=== PATIENT | male | born 2000 | race Caucasian/White ===

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

== ENCOUNTER 2022-03-01 10:16 | Emergency (ER) | payer BC, SELFPAY ==
--- NOTE | 2022-03-01 10:21 | XR_ITS ---
FINAL REPORT CLINICAL HISTORY: punched a refrigerator FINDINGS: 3 views of the right hand were obtained. There are transverse fractures of the 4th and 5th metacarpals. There is volar angulation of the distal fracture fragments. There is no intra-articular extension. The joint spaces are intact. There is prominent soft tissue swelling over the dorsum of the hand up to 1.3 cm. IMPRESSION: Fractures of the 4th and 5th metacarpals. Reviewed, Interpreted and Dictated by Tadeo Gomez MD Transcribed by Donnell Rivas Authenticated by Tadeo Gomez MD on 03/01/2022 11:05:08 AM [facility]
--- NOTE | 2022-03-01 10:22 | XR_ITS ---
FINAL REPORT CLINICAL HISTORY: punched refrigerator FINDINGS: 3 views of the right wrist were obtained. Again seen are angulated fractures of the 4th and 5th metacarpals. There is no acute fracture or dislocation of the wrist. The joint spaces are intact. There is no soft tissue abnormality. IMPRESSION: No acute abnormality of the wrist. Reviewed, Interpreted and Dictated by Tadeo Gomez MD Transcribed by Donnell Rivas Authenticated by Tadeo Gomez MD on 03/01/2022 11:05:07 AM [facility]
[2022-03-01 10:30] VITALS: BP 118/90; PULSE 76; RESP 18; TEMP 37; O2SAT 99; BMI 24.0
--- NOTE | 2022-03-01 11:06 | HMH.EDUTC ---
[facility] [place] Clinical Impression: Right hand fracture Qualifiers: Encounter type: initial encounter Fracture type: closed Qualified Code(s): S62.91XA - Unspecified fracture of right wrist and hand, initial encounter for closed fracture Disposition: Home, Self-Care Condition on Discharge: Good Instructions: DI for a Hand Fracture, How to Take Care of Your Splint, Hand Fracture Additional Instructions: Rest the extremity, apply ice for 15 minutes as tolerated three or four times per day, Wear the orly wrap for compression, Elevate the extremity as tolerated while you are resting. Take ibuprofen for pain. I sent in a prescription to your pharmacy. Follow up with Dr. Manning (orthopedics). Please call first thing in the morning to get a follow up appointment to be seen soon. Your hand will need surgery to repair this. That will be scheduled after your first appointment with orthopedics. Follow up with your regular doctor. GO TO THE ER FOR ANY WORSENING SYMPTOMS Watch your fingers and hand to make sure it is not swelling and causing constriction under the splint. If you have any doubts you could unwrap the top wrap only and rewrap it looser. Prescriptions: Ibuprofen [Ibuprofen 800mg Tablet] 800 mg PO Q8HP PRN #30 tab PRN Reason: Moderate Pain Transmission Status: Received by [facility] Referrals: Provider,MD Anna [Primary Care Provider] - Cristobal Mannnig MD [Staff Physician] - Forms: Work/School Release Time of Disposition: 14:13 Medical Decision Making - Medical Records Medical records reviewed: No: I reviewed the patient's medical records. - Eduardo Inquiry Pt receiving controlled substance: No Vital Signs: 03/01/22 10:30 03/01/22 13:51 Temperature 98.6 F 98.6 F Temperature Source Oral Pulse Rate 76 Pulse Rate [Right Brachial] 76 Respiratory Rate 18 18 Blood Pressure 118/90 Blood Pressure [Right Arm] 118/90 Blood Pressure Mean [Right Arm] 99 Blood Pressure Source [Right Arm] Automatic Cuff Blood Pressure Position [Right Arm] Sitting 02 Sat by Pulse Oximetry 99 Oxygen Delivery Method Room Air - Lab Data Lab results reviewed: Yes: I reviewed the patient's lab results. [facility] [place] - General Stated complaint: bilateral hand pain/swelling Time Seen by Provider: 03/01/22 11:06 Mode of Arrival: Ambulatory Source of Information: Patient Limitations: No Limitations Description of Symptoms (Recalled from Triage Doc. by RN): PATIENT C/O SWELLING TO RIGHT HAND AFTER HITTING A REFRIGERATOR LAST NIGHT HEENT Symptoms (Recalled from RN notes): No Resp Symptoms (Recalled from RN notes): No Skin Symptoms (Recalled from RN notes): No MS Symptoms (Recalled from RN notes): Yes Functional Status (Recalled from RN notes): WNL - History of Present Illness Provider Complaint: He punched a refrigerator today and he has had right hand swelling and pain since then. - Related Data Previous Rx's Medication Instructions Recorded Ibuprofen [Ibuprofen 800mg 800 mg PO Q8HP PRN #30 tab 03/01/22 Tablet] Allergies Allergy/AdvReac Type Severity Reaction Status Date / Time No Known Allergies Allergy Verified 07/29/21 20:07 - Worker's Comp Is this a Worker's Comp case?: No [facility] History - Hepatitis A Screen Drug use history?: No High risk sexual behaviors?: No History of sexually transmitted infection?: No Currently employed?: No Childcare worker?: No Do you have indoor plumbing?: Yes Do you have electricity?: Yes Attestation statement:: This patient has been screened for Hepatitis A risk factors. I have reviewed the patient's past medical history: Yes Medical History: Denies:: Cancer, Diabetes Mellitus Type 1, Diabetes Mellitus Type 2, Hypertension, MRSA Laterality Cases: Bilateral: Myringotomy (Ear Tubes) Other Surgeries: Yes: No Previous Surgery Amputation: No Fractures: No - Social History Smoking Status: Never smoker Alcohol Intake: never
--- NOTE | 2022-03-01 11:15 | XR_ITS ---
FINAL REPORT CLINICAL HISTORY: PAIN AND SWELLING FINDINGS: 2 views of the left forearm were obtained. There is no acute fracture or dislocation. There is mild ulnar negative variance. The joint spaces are intact. There is no soft tissue abnormality. IMPRESSION: No acute abnormality. Reviewed, Interpreted and Dictated by Tadeo Gomez MD Transcribed by Donnell Rivas Authenticated by Tadeo Gomez MD on 03/01/2022 12:52:34 PM [facility]
[2022-03-01 13:51] VITALS: BP 118/90; PULSE 76; RESP 18; TEMP 37; O2SAT 99
== END 2022-03-01 14:27 | disposition home or self-care (01) ==
PROVIDERS: Emergency Provider Nurse Practitioner Family
DX: S62.304A Unspecified fracture of fourth metacarpal bone, right hand, initial encounter for closed fracture (principal); S62.306A Unspecified fracture of fifth metacarpal bone, right hand, initial encounter for closed fracture; W22.09XA Striking against other stationary object, initial encounter; Y92.019 Unspecified place in single-family (private) house as the place of occurrence of the external cause
CPT/HCPCS: 29125; 73090; 73110; 73130; 99212; G0463

== ENCOUNTER → 2022-03-03 15:10 | Outpatient (CLI) | payer BC, SELFPAY ==
[2022-03-03 15:48] LABS: Basophils # 0.1 K/mm3 (0-0.2); Basophils % 1.2 % (0.1-2.0); Eosinophils # 0.3 K/mm3 (0.0-0.4); Eosinophils % 4.5 % (0.1-12.0); Hematocrit 41.9 % (42.0-52.0); Hemoglobin 14.2 g/dL (14.1-18.0); Lymphocytes # 2.1 K/mm3 (0.7-4.5); Lymphocytes % 29.2 % (10-50); Mean Corpuscular HGB Conc 33.8 g/dL (31.8-35.4); Mean Corpuscular Hemoglobin 30.9 pg (27.0-31.2); Mean Corpuscular Volume 91.3 fl (80-94); Mean Platelet Volume 7.9 fl (7.4-10.4); Monocytes # 0.5 K/mm3 (0.1-1.0); Monocytes % 6.7 % (1.7-9.3); Neutrophils # 4.2 K/mm3 (1.8-7.8); Neutrophils % 58.4 % (37.0-80.0); Platelet Count 230 K/mm3 (142-424); Red Blood Count 4.59 M/mm3 (4.60-6.20); Red Cell Distribution Width 13.7 % (11.5-17.5); White Blood Count 7.1 K/mm3 (4.5-13.0)
[2022-03-03 16:23] LABS: Chloride 106 mmol/L (98-107); Potassium 4.3 mmoL/L (3.5-5.1); Sodium 140 mmol/L (136-145)
[2022-03-03 16:25] LABS: Blood Urea Nitrogen 13 mg/dl (9-20)
[2022-03-03 16:26] LABS: Alanine Aminotransferase 19 U/L (12-78); Albumin Level 4.1 g/dl (3.5-5.0); Albumin/Globulin Ratio 1.8 (1.1-1.8); Alkaline Phosphatase 62 U/L (38-126); Anion Gap 8.3 mEq/L (5-15); Aspartate Amino Transferase 24 U/L (17-59); Bilirubin,Total 0.4 mg/dl (0.2-1.3); Carbon Dioxide 30 mmol/L (22.0-30.0); Estimated Glomerular Filt Rate 123 ml/min (>60); GFR (African American) 149 ML/MIN (>60); Globulin 2.3 g/dL (1.3-3.2); Total Protein,Serum 6.4 g/dl (6.3-8.2)
[2022-03-03 16:27] LABS: Calcium 8.4 mg/dl (8.4-10.2); Glucose 81 mg/dl (74-100)
== END ==
PROVIDERS: Visit Provider Physician Assistant Surgical
DX: Z01.812 Encounter for preprocedural laboratory examination (principal); Z11.52 Encounter for screening for COVID-19; S62.309A Unspecified fracture of unspecified metacarpal bone, initial encounter for closed fracture
CPT/HCPCS: 36415; 80053; 85025; C9803; U0003; U0005

== ENCOUNTER 2022-03-04 12:43 | Day surgery (SDC) | payer BC, SELFPAY ==
[2022-03-04] VITALS (9 sets, daily range): BP systolic 112–152; BP diastolic 68–87; PULSE 60–94; RESP 10–18; TEMP 36.2–38; O2SAT 95–100; BMI 24.4
--- NOTE | 2022-03-04 13:40 | HMH.ANESCL ---
[facility] Anesthesia Checklist - Patient Identification Patient Identification: Arm Band - Structural Data Admitted From: Home Planned Operative Procedure/s: ORIF Right Hand Consent for Planned Operative Procedure(s) Verified: Yes Verified Documents: Surgical Consent, History and Physical - NPO Status Verified Time NPO: 00:00 - Additional verifications Anesthesia Reactions: No Hx Blood Transfusions: No Blood Transfusion Reaction: No - Airway Assessment C-Spine Mobility Assessed: Yes (mp2) TMJ Mobility Assessed: Yes Dentition: Good Dentition - Neurological Assessment Level of Consciousness: Awake, Alert - Anesthesia Plan Anesthesia Risk discussed: Yes Anesthesia Plan: Verified ASA Class: I Anesthesia Type: General [facility] History I have reviewed the patient's past medical history: Yes Medical History: Denies:: Cancer, Diabetes Mellitus Type 1, Diabetes Mellitus Type 2, Hypertension, Internal Pacemaker, MRSA, Seizures *Have you ever received a pneumonia vaccine?: No *Have you received a flu vaccine this season?: No Other Medical History: Denies: Blood Transfusion Reaction Anesthesia experience/problems:: nac Laterality Cases: Bilateral: Myringotomy (Ear Tubes) Other Surgeries: Yes: No Previous Surgery. No: Pacemaker Amputation: No Fractures: No - *Social History Last grade of school completed: High school graduate Smoking Status: Never smoker Alcohol Intake: never Alcohol Intake Frequency:: holidays/special occasions only Substance Use Type: denies use *Occupational Status:: employed Housing: house Household Members: family *Travel in the last 8 weeks: None Family Hx:: Non-contributory
--- NOTE | 2022-03-04 17:01 | XR_ITS ---
PROCEDURE INFORMATION: Exam: FL Unlisted Fluoroscopic Procedure Exam date and time: 03/04/2022 3:12 PM Age: 22 years old Clinical indication: Device placement; Joint fixation hardware; Additional info: Right orif 4th and 5th metacarpal TECHNIQUE: Imaging protocol: Unlisted fluoroscopic procedure (eg, diagnostic, interventional). The interpreting radiologist was not present during the examination. COMPARISON: CR XR HAND RT MIN 3V 03/01/2022 10:21 AM RADIATION DOSE METRICS: Fluoroscopy time (seconds): Not provided. Number of fluoro spot images: 24 FINDINGS: Consent: Radiologist did not perform the procedure. Procedure summary: Radiologist did not perform the procedure. Focus of imaging: Right hand. Procedural imaging: Multiple fluoroscopic images of the hand were provided where there has been interval fixation of the previously identified 4th and 5th metacarpal fractures. There is adequate anatomic alignment status post plate fixation and there is no evidence of discrete complications in this examination. Consider follow-up dedicated x-rays as clinically warranted. Please review postoperative report for complete details. IMPRESSION: Please see above.
--- NOTE | 2022-03-04 17:50 | HMH.ANESI ---
[facility] Anesthesia Record Part I Intake, IV Amount: 1,000 Estimated blood loss (mL): 10 Urine output (mL): 0 Blood Pressure: 112/68 SaO2: 96 Pulse Rate: 64 Respiratory Rate: 10 Temperature: 97.2 F Patient is:: Drowsy Stable to PACU at:: 17:57
--- NOTE | 2022-03-04 17:55 | XR_ITS ---
PROCEDURE INFORMATION: Exam: XR Right Hand Exam date and time: 03/04/2022 6:05 PM Age: 22 years old Clinical indication: Condition or disease; Other: Post op right hand orif. TECHNIQUE: Imaging protocol: XR Right hand. Views: 3 or more views. COMPARISON: CR XR HAND RT MIN 3V 03/01/2022 10:21 AM FINDINGS/IMPRESSION: Interval fixation of the previously identified 4th and 5th metacarpal fractures. There is adequate anatomic alignment status post plate fixation and there is no evidence of discrete complications in this examination. There has been interval placement of a splint.
--- NOTE | 2022-03-04 18:10 | SUR.PHASEI ---
1747: REPORT RECEIVED FROM Clemencia NUÑEZ RN. PATIENT ARRIVED TO PACU. ORAL AIRWAY IN PLACE. VSS. SCDS HOOKED UP. 1759: PATIENT MORE ALERT. ORAL AIRWAY REMOVED. PATIENT ABLE TO FOLLOW COMMANDS. RADIOLOGY AT BEDSIDE FOR XRAYS. 1807: PATIENT EATING ICE CHIPS. DENIES ANY PAIN. SLING IN PLACE.
--- NOTE | 2022-03-04 18:24 | SUR.PHASEI ---
1810: DR. ANDRES AT BEDSIDE TALKING WITH PATIENT.
--- NOTE | 2022-03-04 18:24 | SUR.PHASEI ---
1813: REPORT GIVEN TO JULIA LEE. PATIENT TRANSPORTED TO PACU. AWAKE, ALERT, SITTING UP ON STRETCHER TALKING.
--- NOTE | 2022-03-04 21:28 | HMH.OPNOTE ---
Date of procedure: 03/04/22 Pre-op Diagnosis:: 1. Closed, displaced fracture shaft of fourth metacarpal, right hand 2. Closed, displaced fracture shaft of fifth metacarpal, right hand Post-op Diagnosis:: Same Procedure performed:: 1. Open reduction internal fixation fourth metacarpal fracture, right hand 2. Open reduction and internal fixation fifth metacarpal fracture, right hand Surgeon:: Cristobal Manning MD Video Operator(s):: Annita Deluca PA-C PARTITION ASSEMBLER:: Other (Miguel Carter) Anesthesia: LMA Estimated blood loss (mL): 2 Clinical Note:: Patient is a 22-year-old [id number] male, who sustained a closed, displaced fracture shafts of the fourth and fifth metacarpals of his RIGHT hand.? He sustained the injury after he punched a refrigerator in anger about 4 days ago.? Following a detailed discussion about the management options including both nonsurgical and surgical with the patient, he opted for an open reduction and internal fixation.? Please refer to orthopedic office note for full details. Operative findings:: Closed, displaced fourth and fifth metacarpal shaft fractures of RIGHT hand as noted in the preoperative x-rays.? Both the fractures were well reduced and internally fixed in a stable fashion with plates and screws. Operative note:: On the day of the surgery the patient was met in the preoperative area and was positively identified. I again discussed the diagnosis, natural history and management options in detail including both nonsurgical and surgical. Given the displacement at the fracture site and significant shortening of the metacarpals, he opted for surgical remediation in the form of an open reduction and internal fixation as appropriate at the time of surgery.? I have again discussed the details of the procedure, risks, benefits and alternatives. The complications discussed include but are not limited to infection, bleeding, injury to nerves and blood vessels, tendon injury and adhesions, nonunion, mal-union, delayed union, finger stiffness, complex regional pain syndrome, hardware failure, incomplete functional recovery, persistent pain, likely need for further surgery, complications of anesthesia including heart attack, stroke and even . We discussed about the likely failure of the surgery to accomplish the desired goals, decreased use of the hand, and loss of use of the hand, loss of the finger or hand. We also discussed about the possible need for further surgery for removal of the hardware if there are any problems. We have discussed nonsurgical alternatives including use of a splint, activity limitations, and early range of motion, elevation, icing and simple analgesics, in detail. If elected to treat non operatively, the fractures would heal in the displaced position with permanent malalignment and shortening. We indicated to the patient where the proposed incision would be made and also discussed the possibility of extending the incision if needed to accomplish an effective fracture reduction and fixation. The patient asked appropriate questions and all have been answered by me. I believe the patient is fully informed as to the goals of surgery, the potential risks and benefits. He wished to proceed with the surgery.? The operative site was marked and initialed by me. A physical examination was performed and the chart was updated. Patient understood the risks, agreed to proceed with surgery, signed the consent form and no guarantees or assurances were given or implied. The patient was brought to the operating room and positioned supine on the operating table.? All the bony prominences were appropriately padded.? A general anesthesia was administered by the school crossing guard supervisor.? A well-padded tourniquet cuff was placed over the right upper arm.? The right hand was prepped and draped in the usual sterile fashion.? A time-out was performed as per the hospital protocol at which point the patient's identity, procedure, laterality and surgical p
[2022-03-05 09:09] VITALS: BP 136/82; PULSE 94; TEMP 36.7
--- NOTE | 2022-03-05 09:09 | HMH.ANESII ---
[facility] Anesthesia Record Part II Discharge Time: 18:14 Destination: Surgical Day Care (OP Surgery) PACU nurse assessment reviewed?: Yes Patient Condition:: Good Anesthesia Complications:: None Swallowing reflex intact?: Yes Cyanosis?: No Blood Pressure: 136/82 Pulse Rate: 94 Temperature: 98.1 F Mental Status: Alert & Oriented Pain level:: 0 Nausea and/or vomitting:: None Intake, IV Amount: 0
== END 2022-03-04 18:45 | disposition home or self-care (01) ==
LOC: OR 12:44
PROVIDERS: Visit Provider Orthopaedic Surgery
PROC: (CPT 26615; principal; 2022-03-04 14:45)
DX: S62.326A Displaced fracture of shaft of fifth metacarpal bone, right hand, initial encounter for closed fracture (principal); S62.324A Displaced fracture of shaft of fourth metacarpal bone, right hand, initial encounter for closed fracture; W22.09XA Striking against other stationary object, initial encounter
CPT/HCPCS: 26615 ×2; 73120; 73130; 76000; 96374; C1713; C1776; J2405

== ENCOUNTER → 2022-03-11 10:27 | Outpatient (CLI) | payer BC, SELFPAY ==
--- NOTE | 2022-03-11 10:34 | XR_ITS ---
FINAL REPORT CLINICAL HISTORY: ORIF RT hand COMPARISON: 03/04/2022 FINDINGS: RIGHT HAND: 3 views of the right hand were obtained. There are postoperative changes from ORIF of the 4th and 5th metacarpals. There are subacute 4th and 5th metacarpal fractures. No other fracture is identified. There is dorsal hand soft tissue swelling. IMPRESSION: Dorsal hand soft tissue swelling with no acute bony abnormality. Reviewed, Interpreted and Dictated by Jhoan Schwab III, MD Transcribed by Joan Valentin Authenticated by Jhoan Schwab III, MD on 03/11/2022 12:24:16 PM [facility]
== END ==
PROVIDERS: Visit Provider Physician Assistant Surgical
DX: S62.304A Unspecified fracture of fourth metacarpal bone, right hand, initial encounter for closed fracture (principal); S62.306A Unspecified fracture of fifth metacarpal bone, right hand, initial encounter for closed fracture
CPT/HCPCS: 73130

== ENCOUNTER → 2022-03-31 14:20 | Outpatient (CLI) | payer BC, SELFPAY ==
--- NOTE | 2022-03-31 14:23 | XR_ITS ---
FINAL REPORT CLINICAL HISTORY: rt hand fx, patient punched a refrigerator 1.5 months ago. F/U study. COMPARISON: March 11, 2022 FINDINGS: RIGHT HAND Three views demonstrate 4th and 5th mid metacarpal fractures with postoperative changes from ORIF. There are screw plates and screws present at these 2 fracture sites. Findings are visually stable. There is no new bony abnormality. The visualized joint spaces are normally aligned. The soft tissues are unremarkable. IMPRESSION: Fractures with postoperative changes as above, visually stable. Reviewed, Interpreted and Dictated by Jhoan Schwab III, MD Transcribed by Veronica Hall Authenticated by Jhoan Schwab III, MD on 03/31/2022 03:21:14 PM [facility]
== END ==
PROVIDERS: Visit Provider Orthopaedic Surgery
DX: S62.91XA Unspecified fracture of right hand, initial encounter for closed fracture (principal)
CPT/HCPCS: 73130

== ENCOUNTER 2022-03-31 15:29 | Outpatient (RCR) | payer BC, SELFPAY | END 2022-03-31 16:24 | disposition home or self-care (01) | LOC: OT 15:29 | PROVIDERS: Visit Provider Orthopaedic Surgery | DX: S62.324D Displaced fracture of shaft of fourth metacarpal bone, right hand, subsequent encounter for fracture with routine healing (principal); S62.326D Displaced fracture of shaft of fifth metacarpal bone, right hand, subsequent encounter for fracture with routine healing | CPT/HCPCS: 97763 ==

== ENCOUNTER 2022-04-05 13:25 | Outpatient (RCR) | payer BC, SELFPAY ==
--- NOTE | 2022-04-05 14:51 | HMH.OTOPEV ---
OT Inpatient Evaluation Rehab OT Outpatient Eval Start: 04/05/22 14:37 Freq: Status: Active Protocol: Document 04/05/22 14:37 MEAGANBOLA (Rec: 04/05/22 14:39 LUKAS [id number]) Electronically Signed By Asiya Nolasco OT 04/05/22 14:37 Outpatient Therapy Subjective History Subjective History 22 year old male who sustained a closed, displaced fracture shafts of the fourth and fifth metacarpals of his right hand . He sustained the injury after he punched a refrigerator in anger. On 03/04, Patient underwent ORIF on fourth and fith metacarpal fx . Patient referred to skilled OP OT services for R hand therapy. Chief Complaint Pain,Weakness,Decreased Fmd Teacher Strength Symptom Type Ache Symptoms Relieved By Rest/Positioning,Heat,Ice, Brace/Support Symptoms Aggravated By Physical Activity Prior Functional Limitations None Current Functional Limitations None Symptom Description Constant and Continuous Level of pain today (0-10) 0 Pain scale - at its best (0-10) 0 Pain scale - at its worst (0-10) 7 Wrist/Hand Eval Wrist Range of Motion Right Wrist Extension Active Range of Motion ( 50 degrees) Wrist Flexion Active Range of Motion ( 72 degrees) Wrist Radial Deviation Active Range of 20 Motion (degrees) Wrist Ulnar Deviation Active Range of 30 Motion (degrees) Forearm Supination Active Range of 90 Motion (degrees) Forearm Pronation Active Range of Motion 90 (degrees) Fmd Teacher/Pinch Strength Right Fmd Teacher Strength Measurement (lbs) 90 Left Fmd Teacher Strength Measurement (lbs) 110 OT Outpatient Assessment Impairments Problems/Impairments Impaired Range of Motion, Impaired Strength,Subjective C /O Pain Prognosis Rehab Potential Good Clinical Impression Consistent with Diagnosis Yes Short Term Goals Number of Weeks 2 Increase Range of Motion Yes: AROM of R UE shld wrist flex: 75; ext: 60 Increase Strength Yes: Improve R UE plant operations vice president strength: 100# Decrease Subjective C/O Pain Yes: 6/10 pain at worst Patient to be Ind w/ HEP Yes: AAROM Patient to be Ind w/ Advanced HEP Yes: Strengthening Retail Wireless Sales Consultant Goals Number of We
== END 2022-04-05 13:30 | disposition home or self-care (01) ==
LOC: OT 13:25
PROVIDERS: Visit Provider Orthopaedic Surgery
DX: S62.324D Displaced fracture of shaft of fourth metacarpal bone, right hand, subsequent encounter for fracture with routine healing (principal); S62.326D Displaced fracture of shaft of fifth metacarpal bone, right hand, subsequent encounter for fracture with routine healing
CPT/HCPCS: 97165

== ENCOUNTER → 2022-04-13 13:24 | Outpatient (CLI) | payer BC, SELFPAY ==
--- NOTE | 2022-04-13 13:27 | XR_ITS ---
FINAL REPORT CLINICAL HISTORY: hand fx COMPARISON: 03/31/2022 FINDINGS: AP, lateral and oblique views of the right hand were obtained. Again identified are postoperative changes from ORIF of the 4th and 5th metacarpals. There has been interval healing of the fractures. The hardware is intact. There is no acute osseous abnormality or tissue abnormality. IMPRESSION: Postsurgical changes with interval healing. Reviewed, Interpreted and Dictated by Usha Moody MD Transcribed by Veronica Hall Authenticated by Usha Moody MD on 04/13/2022 02:36:11 PM [facility]
== END ==
PROVIDERS: Visit Provider Physician Assistant Surgical
DX: S62.324D Displaced fracture of shaft of fourth metacarpal bone, right hand, subsequent encounter for fracture with routine healing (principal); S62.326D Displaced fracture of shaft of fifth metacarpal bone, right hand, subsequent encounter for fracture with routine healing
CPT/HCPCS: 73130

== ENCOUNTER → 2022-05-04 13:14 | Outpatient (CLI) | payer BC, SELFPAY ==
--- NOTE | 2022-05-04 13:17 | XR_ITS ---
FINAL REPORT CLINICAL HISTORY: s/p rt hand surgery 03/04/2022 COMPARISON: April 13, 2022 FINDINGS: RIGHT HAND: 3 views of the right hand were obtained. There are 4th and 5th metacarpal fractures with postoperative changes from ORIF. Bony alignment is stable. There is some new bone formation at the fracture sites. There is no new abnormality. Visualized joint spaces are normally aligned. Soft tissues are unremarkable. IMPRESSION: Postoperative changes as above. No new abnormality. Reviewed, Interpreted and Dictated by Jhoan Schwab III, MD Transcribed by Lea Marcus Authenticated and [facility]
== END ==
LOC: RAD 13:15
PROVIDERS: Visit Provider Orthopaedic Surgery
DX: S62.91XA Unspecified fracture of right hand, initial encounter for closed fracture (principal)
CPT/HCPCS: 73130

== ENCOUNTER → 2022-06-02 12:29 | Outpatient (CLI) | payer BC, SELFPAY ==
--- NOTE | 2022-06-02 12:34 | XR_ITS ---
FINAL REPORT CLINICAL HISTORY: rt hand fracture COMPARISON: May 04, 2022 FINDINGS: 3 views of the right hand were obtained. There are side plates and screws securing healed or healing fractures of the 4th and 5th metacarpals. There is no intra-articular extension. The joint spaces are intact. There is no soft tissue abnormality. IMPRESSION: Stable postoperative changes. Reviewed, Interpreted and Dictated by Tadeo Gomez MD Transcribed by Donnell Rivas Authenticated and [facility]
== END ==
LOC: RAD 12:30
PROVIDERS: Visit Provider Physician Assistant Surgical
DX: Z09 Encounter for follow-up examination after completed treatment for conditions other than malignant neoplasm (principal); S62.324D Displaced fracture of shaft of fourth metacarpal bone, right hand, subsequent encounter for fracture with routine healing; S62.326D Displaced fracture of shaft of fifth metacarpal bone, right hand, subsequent encounter for fracture with routine healing
CPT/HCPCS: 73130

== ENCOUNTER 2022-08-03 18:29 | Emergency (ER) | payer BC, SELFPAY ==
[2022-08-03 19:00] VITALS: BP 146/90; PULSE 76; RESP 19; TEMP 36.8; O2SAT 99; BMI 25.0
--- NOTE | 2022-08-03 19:22 | EXP.UTC ---
Discharge Plan Disposition Patient Disposition: Home, Self-Care Condition: Good Prescriptions Prescriptions: New azithromycin [Zithromax Z-Sudhir] 250 mg tablet See Rx Instructions .ROUTE .COMPLEX 5 Days Qty: 6 0RF Rx Instructions: For 250 mg dose pack: take 500 mg today (day 1), then 250 mg for 4 days (days 2-5) methylprednisolone [Medrol (Sudhir)] 4 mg tablets,dose pack See Rx Instructions .Route .COMPLEX 6 Days Qty: 21 0RF Rx Instructions: taper pack; guaifenesin [Mucinex] 600 mg tablet extended release 12hr 600 mg PO BID PRN (Reason: cough) Qty: 20 0RF Referrals Follow up/Referrals: Provider,Referral, MD [Primary Care Provider] - See instructions Activity Restrictions/Add. Instructions Additional Instructions/Restrictions: *Monitor Temp, Over the counter Motrin or Tylenol as directed/as needed Tylenol every 4 hours and Motrin every 6 hours (as long as your family doctor has told you that you can take it) for fever or pain. and straight to ER if unable to lower temp less than 101.0 after medication given *Warm salt water gargles may help to soothe the throat *Throat Lozenges? *Warm fluids like tea with honey may help to soothe the throat? *Sleep elevated *Humidifier/Vaporizer Follow up IMMEDIATELY for new or worsening symptoms or no Noticeable improvement over the next 48-72 hours. 911 for difficulty breathing or swallowing You were tested for today for COVID19 your test result should be back in the next 24-48 hours, you may check your results on the [facility] My Health Portal Make sure to take your Vitamins Vit. C Vit D and Zinc if you can take them Clinical Impressions Clinical Impression: Bronchitis Stand Alone Forms Stand Alone Forms: Work/School Release Instructions Patient Instructions: Coronavirus Disease 2019, Preventing the Spread of Coronavirus Discharge Instructions, Acute Bronchitis, DI for Chronic Bronchitis Discharge ED Provider: Zenaida Rehman [facility] [place] HPI General Stated complaint: cough, congestion, soa Mode of Arrival: Ambulatory Source of Information: Patient Limitations: No Limitations Time Seen by Provider: 08/03/22 19:22 Description of Symptoms (Recalled from Triage Doc. by RN): PATIENT C/O FEVER, BODY ACHES, COUGH WITH YELLOW MUCOUS, CONGESTION, AND SOA X 2 DAYS HEENT Symptoms (Recalled from RN notes): Yes Resp Symptoms (Recalled from RN notes): Yes Skin Symptoms (Recalled from RN notes): No MS Symptoms (Recalled from RN notes): No Functional Status (Recalled from RN notes): WNL History of Present Illness Provider Complaint: Patient state that he has been having cough, fever, chills, productive cough at times and feeling a little SOA at times States that today he was feeling worse and having burning sensation in his chest at times with cough States that feels like he is having drainage in the back of his throat and causing his throat to hurt Related Data Previous Rx's Medication Instructions Recorded azithromycin 250 mg tablet See Rx Instructions PO .COMPLEX 5 08/03/22 (Zithromax Z-Sudhir) days #6 tabs guaifenesin 600 mg tablet, 600 mg PO BID PRN cough #20 tabs 08/03/22 extended release 12 hr (Mucinex) methylprednisolone 4 mg tablets in See Rx Instructions .Route 08/03/22 a dose pack (Medrol (Sudhir)) .COMPLEX 6 days #21 tabs Allergies Allergy/AdvReac Type Severity Reaction Status Date / Time No Known Allergies Allergy Verified 06/02/22 13:57 Worker's Comp Is this a Worker's Comp case?: No PFSH PFSH Surgical History (Updated 08/03/22 @ 19:16 by Judi Gorman RN) History of hand surgery History of tympanostomy tube placement Social History (Updated 08/03/22 @ 19:17 by Judi Gorman RN) Smoking Status: Never smoker second hand exposure: No alcohol intake: never substance use type: denies use current occupational status: employed Travel in the last 8 weeks: None household members: family housing: h
[2022-08-03 19:37] LABS: Adenovirus,PCR Not Detected (NotDetected); Bordetella Pertussis Not Detected (NotDetected); Chlamydophila Pneumoniae, PCR Not Detected (NotDetected); Coronavirus 19, PCR Not Detected (NotDetected); Coronavirus 229E Not Detected (NotDetected); Coronavirus NL63 Not Detected (NotDetected); Coronavirus OC43 Not Detected (NotDetected); Coronovirus HKU1,PCR Not Detected (NotDetected); Human Metapneumovirus Not Detected (NotDetected); Influenza A, PCR Not Detected (NotDetected); Influenza AH1, 2009 Not Detected (NotDetected); Influenza AH1, PCR Not Detected (NotDetected); Influenza AH3,PCR Not Detected (NotDetected); Influenza B, PCR Not Detected (NotDetected); Mycoplasma Pneumoniae, PCR Not Detected (NotDetected); Parainfluenza 1, PCR Not Detected (NotDetected); Parainfluenza 2, PCR Not Detected (NotDetected); Parainfluenza 3, PCR Not Detected (NotDetected); Parainfluenza 4, PCR Not Detected (NotDetected); Respiratory Syncytial Virus Not Detected (NotDetected); Rhinovirus/Enterovirus Not Detected (NotDetected)
[2022-08-03 19:43] VITALS: BP 146/90; PULSE 76; RESP 19; TEMP 36.8; O2SAT 99
== END 2022-08-03 19:49 | disposition home or self-care (01) ==
PROVIDERS: Emergency Provider Nurse Practitioner
DX: J20.9 Acute bronchitis, unspecified (principal); Z20.822 Contact with and (suspected) exposure to COVID-19
CPT/HCPCS: 87581; 87632; 87798; 99212; C9803; G0463; U0003; U0005

== ENCOUNTER 2022-11-30 10:22 | Emergency (ER) | payer BC, SELFPAY ==
--- NOTE | 2022-11-30 10:23 | EXP.UTC ---
Discharge Plan Disposition Patient Disposition: Home, Self-Care Condition: Good Prescriptions Prescriptions: New prednisone 10 mg tablet 10 mg PO BID 3 Days Qty: 6 0RF amoxicillin [amoxicillin] 500 mg tablet 500 mg PO TID 10 Days Qty: 30 0RF [id number] [Bromfed DM] 2-30-10 mg/5 mL Syrup 5 ml PO Q6H PRN (Reason: Cough) Qty: 240 0RF Referrals Follow up/Referrals: Provider,Referral, MD [Primary Care Provider] - See instructions Activity Restrictions/Add. Instructions Additional Instructions/Restrictions: Drink plenty of fluids. Take tylenol or ibuprofen for pain or fever. Take the medications as directed. Follow up with your regular doctor. GO TO THE ER FOR ANY WORSENING SYMPTOMS His symptoms began over the weekend, so he was sick yesterday also. His work excuse needs to count for Tuesday (11/29) also, if possible. Clinical Impressions Clinical Impression: Pharyngitis, Acute viral syndrome Stand Alone Forms Stand Alone Forms: Work/School Release Instructions Patient Instructions: Sore Throat, DI for Pharyngitis/Tonsillopharyngitis -- Adult Discharge ED Provider: Elliott Mas [facility] General Stated complaint: Fever, cough, ear pain, sinus pain, bodyaches Time Seen by Provider: 11/30/22 10:23 History of Present Illness Provider Complaint: He states that for the past 2 days he has had fever, chills, low grade fever, malaise and a cough. Related Data Previous Rx's Medication Instructions Recorded amoxicillin 500 mg tablet 500 mg PO TID 10 days #30 tabs 11/30/22 [id number] 5 ml PO Q6H PRN Cough #240 mL 11/30/22 2 mg-30 mg-10 mg/5 mL oral syrup (Bromfed DM) prednisone 10 mg tablet 10 mg PO BID 3 days #6 tabs 11/30/22 Allergies Allergy/AdvReac Type Severity Reaction Status Date / Time No Known Allergies Allergy Verified 11/30/22 10:45 [facility] Disclaimer: The information contained in this section may have been updated after the patient was seen, as this information can be updated by other users. Surgical History History of hand surgery History of tympanostomy tube placement Social History Smoking Status: Never smoker second hand exposure: No alcohol intake: never substance use type: denies use current occupational status: employed Travel in the last 8 weeks: None household members: family housing: house current occupation: [employer] current occupational exposures/hazards: No caffeine: Yes ROS Obtained: Yes All systems reviewed & no additional complaints except as documented Constitutional Constitutional: Reports chills and Reports fever(s) Eyes Eyes: Denies eye discharge ENT Ears, Nose, Mouth, and Throat: Reports as per HPI Cardiovascular Cardiovascular: Denies chest pain Respiratory Respiratory: Denies chest congestion and Reports cough Gastrointestinal Gastrointestingal: Reports nausea; Denies abdominal pain, constipation, cramping, diarrhea or vomiting Musculoskeletal Musculoskeletal: Denies arthralgias Integumentary/Breasts Skin/Breast: Denies rash Neurologic Neurologic: Denies paresthesias Physical Exam General General appearance: alert and in no apparent distress Head Head exam: atraumatic, normocephalic and normal inspection Eye Eye exam: Present normal appearance, PERRL and EOMI ENT ENT exam: Present mucous membranes moist and normal external ear exam Expanded ENT Exam TM/Canal exam: Bilateral TM: erythema and bulging Nose exam: Absent sinus tenderness Mouth exam: Present normal external inspection; Absent drooling Teeth exam: Present normal inspection Throat exam: Present tonsillar erythema, tonsillomegaly and tonsillar exudate Neck Neck exam: Present normal inspection, full ROM and trachea midline; Absent tenderness, meningismus or lymphadenopathy Chest Chest insp
[2022-11-30 10:35] VITALS: BP 155/94; RESP 19; TEMP 37.2; O2SAT 100; BMI 24.7
[2022-11-30 10:45] LABS: UTC Strep Screen (Rapid) Negative (Negative)
[2022-11-30 10:46] LABS: UTC Influenza A Antigen Negative (Negative); UTC Influenza B Antigen Negative (Negative)
[2022-11-30 12:00] VITALS: BP 155/94; PULSE 79; RESP 20; TEMP 37.2; O2SAT 100
== END 2022-11-30 12:00 | disposition home or self-care (01) ==
PROVIDERS: Emergency Provider Nurse Practitioner Family
DX: J02.9 Acute pharyngitis, unspecified (principal); B34.9 Viral infection, unspecified; R50.9 Fever, unspecified; R05.9 Cough, unspecified; H92.09 Otalgia, unspecified ear
CPT/HCPCS: 87804; 87880; 99212; 99213; C9803; G0463; U0003; U0005